=== PATIENT | male | born 1970 | race African-American/Black ===

== ENCOUNTER 2018-03-09 19:50 | Observation (INO) ==
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
[2018-03-09 20:29] LABS: Hematocrit 48.5 % (37.5-50.1); Hemoglobin 16.2 g/dL (12.9-16.9); Immature Platelets 1.9 % (1.1-6.1); Mean Corpuscular HGB Conc 33.4 g/dL (31.6-35.5); Mean Corpuscular Hemoglobin 29.7 pg (28.0-33.3); Red Blood Count 5.45 M/mcL (4.19-5.50); Red Cell Distribution Width 13.2 % (11.5-14.5)
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
[2018-03-09 20:46] LABS: BUN/Creatinine Ratio 20 (6-26); Blood Urea Nitrogen 21 mg/dL (6-20); Calcium 9.7 mg/dL (8.6-10.3); Carbon Dioxide 27 mEq/L (23-29); Chloride 106 mEq/L (98-107); Glucose 82 mg/dL (70-105); Osmolality,Calculated 294 (280-300); Potassium 3.7 mEq/L (3.5-5.1); Sodium 141 mEq/L (136-145); eGFR For Non-African Americans > 60 (> 60)
[2018-03-09 21:30] LABS: Troponin I < 0.03 ng/mL (< 0.04)
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
[2018-03-09] MEDS ORDERED: Naloxone 0.4 MG/ML INJ IVP PRN (23:58)
[2018-03-10] MEDS ORDERED: Gadolinium Contrast Agent (WT Based) IV PRN (00:07)
[2018-03-10] MEDS: Aspirin 81 MG TAB.CHEW PO SCH ×2 (00:58→08:33)
[2018-03-10] MEDS ORDERED: Acetaminophen/Aspirin/Caffeine TABLET PO PRN (01:24)
[2018-03-10] MEDS: Famotidine 20 MG TABLET PO SCH ×3 (01:50→17:50)
[2018-03-10 05:31] LABS: Basophils % 0.6 %; Eosinophils # 0.3 K/mcL (0.0-0.6); Hematocrit 44.7 % (37.5-50.1); Hemoglobin 14.8 g/dL (12.9-16.9); Immature Granulocytes % 0.3 % (0-4); Lymphocytes # 2.8 K/mcL (0.6-4.6); Lymphocytes % 38.7 %; Mean Corpuscular HGB Conc 33.1 g/dL (31.6-35.5); Mean Corpuscular Hemoglobin 29.5 pg (28.0-33.3); Mean Platelet Volume 9.5 fL (9.4-12.4); Monocytes # 0.9 K/mcL (0.0-1.3); Monocytes % 13.1 %; Neutrophils # 3.1 K/mcL (1.6-8.9); Platelet Count 270 K/mcL (140-400); Red Blood Count 5.02 M/mcL (4.19-5.50); Red Cell Distribution Width 13.1 % (11.5-14.5); Segmented Neutrophils % 43.3 %
[2018-03-10 05:59] LABS: Thyroid Stimulating Hormone 4.653 mcIU/mL (0.340-5.600)
[2018-03-10 06:00] LABS: Alanine Aminotransferase 16 Units/L (7-52); Albumin/Globulin Ratio 1.4 (1.1-2.2); Alkaline Phosphatase 61 Units/L (34-104); Aspartate Amino Transferase 14 Units/L (13-39); BUN/Creatinine Ratio 22 (6-26); Bilirubin,Total 0.6 mg/dL (0.3-1.0); Blood Urea Nitrogen 21 mg/dL (6-20); Calcium 9.3 mg/dL (8.6-10.3); Carbon Dioxide 23 mEq/L (23-29); Chloride 107 mEq/L (98-107); Chol/HDL Ratio 3.9 (0-4.9); Cholesterol 157 mg/dL (< 200); Globulin 2.8 g/dL (2.4-3.5); Glucose 99 mg/dL (70-105); HDL Cholesterol 40 mg/dL (40-59); LDL Cholesterol,Calculated 85 mg/dL (0-99); Osmolality,Calculated 293 (280-300); Potassium 3.7 mEq/L (3.5-5.1); Sodium 140 mEq/L (136-145); Total Protein 6.8 g/dL (6.4-8.9); Triglycerides 159 mg/dL (< 150); eGFR For Non-African Americans > 60 (> 60)
[2018-03-10 09:30] LABS: Estimated Average Glucose 120 mg/dl; Hemoglobin A1C 5.8 %
[2018-03-10] MEDS ORDERED: amLODIPine 5 MG TABLET PO SCH (13:30)
--- NOTE | 2018-03-10 14:08 | Internal Med Progress Note ---
Hospitalist Progress Note - Encounter Date of Encounter: 03/10/18 Time of Encounter: 14:01 - Subjective Interval History: 47-year-old male with past medical history of GERD and migraine presented with 1 month history of progressive disequilibrium. He has been diagnosis was migraine for 4-5 years. He takes Excedrin for the headache, he reported he has to take extra dose to relieve the pain. He took about 40 tablets in the past week. He started to have dizziness about a month ago, which has been progressively worsening, he suffered dizziness almost all day prior to admission. It is associated with headache, photophobia, trouble concentrating, and slow response. Initially stroke was suspected, however, CT/MRI brain no acute infarct. [place] Hallpike maneuver was negative, patient has no hearing loss. He denies recent URI or other viral infection. I reviewed with the patient history carefully, the diagnosis is most likely Excedrin toxicity and undertreated migraine. - Exam Vitals: Temp Pulse Resp BP Pulse Ox 98.1 F 79 16 163/109 96 03/10/18 13:11 03/10/18 13:11 03/10/18 13:11 03/10/18 13:11 03/10/18 13:11 Exam: PHYSICAL EXAMINATION: GENERAL APPEARANCE: The patient is alert, oriented and in no acute distress. HEENT: Head is normocephalic. The sinuses are nontender. Pupils are equal and reactive. The nares are patent. Oropharynx clear without lesions. NECK: Supple without lymphadenopathy. HEART: Regular rate and rhythm. LUNGS: No crackles or wheezes are heard. ABDOMEN: Soft, nontender, nondistended with good bowel sounds heard. Inguinal area is normal. EXTREMITIES: Without cyanosis, clubbing or edema. NEUROLOGICAL: Gross nonfocal. SKIN: Warm and dry without any rash. - Assessment and Plan (1) Dizziness Current Visit: Yes Status: Acute Assessment and Plan: 47-year-old male with past medical history migraine presented with 1 month history of ataxia, dizziness, and disequilibrium. he reported severe migraine and also has to take a double dose of Excedrin for headache. He reportedly took more than 40 tablets last week. Meanwhile he developed dizziness for a month, which progressively got worse, with associated nausea, photophobia, and trouble concentrating. - Severe was suspected initially, however, CT/MRI brain were negative for infarct. - [place]-Hallpike maneuver was negative, BPPV less likely. Patient denies hearing loss, Meniere's disease was less likely. His symptoms was progressively w orsening, he has no recent viral infection/URI, vestibular neuronitis was less likely. - Excedrin toxicity is highly suspected, the most common side effect is dizziness. - Patient migraine was also undertreated and uncontrolled. We will stop the Excedrin, started patient on Imitrex, he also need migraine prophylaxis due to the frequency of the headache, was started patient on propranolol, which will concomitantly treats THN. (2) Encephalopathy Current Visit: Yes Status: Acute Assessment and Plan: It is likely due to the toxicity of Excedrin. (3) Elevated blood pressure reading Current Visit: Yes Status: Acute Assessment and Plan: Started pt on propanolol for both HTN and migraine prophylaxis. (4) Migraine Current Visit: Yes Status: Acute Assessment and Plan: treatment as above. (5) DVT prophylaxis Current Visit: Yes Status: Acute Assessment and Plan: - SCDs - Time Spent with Patient Total time spent is greater than 50% in coordination of care (as documented) at patient's floor/unit and/or counseling patient: Greater than 35 minutes Plan of Care Discussed with: patient Internal Medicine: Result - Labs CBC & Chem 7: 03/10/18 04:29 03/10/18 04:29 Labs: Short CBC 03/09/18 03/10/18 Range/Units 20:16 04:29 WBC 7.1 7.2 (4.3-11.1) K/mcL Hgb 16.2 14.8 (12.9-16.9) g/dL Hct 48.5 44.7 (37.5-50.1) % Plt Count 288 270 (140-400) K/mcL Neutrophils # 3.1 (1.6-8.9) K/mcL BMP 03/09/18 03/10/18 20:16 04:29 Sodium 141 140 Potassium 3.7 3.7 Chloride 106 107 Carbon Dioxide 27 23 BUN 21 H 21 H Creatinine 1.06 0.95 Glucose 82 99 Calcium 9.7 9.3 Cardiac Enzymes 03/09/18 Range/Units 20:16 Troponin I < 0.03 (< 0.04) ng/mL Liver Function 03/10/18 Range/Units 04:29 Total Bilirubin 0.6 (0.3-1.0) mg/dL AST 14 (13-39) Units/L ALT 16 (7-52) Units/L Alkaline Phosphatase 61 (34-104) Units/L Albumin 4.0 (3.5-5.7) g/dL - ABG Interpretation ABG results: PT/INR, D-dimer PT 11.0 Seconds (9.4-12.1) 03/09/18 20:16 - Impressions Impressions Head CT 03/09/18 20:04 IMPRESSION: No acute intracranial abnormality. D/ / Jair London / Jair London Interpreting Provider: Jair London Echocardiogram 03/10/18 00:07 Impressions: LVEF 65%. Normal LV chamber size, wall thickness and function. Mild concentric left ventricular hypertrophy. Normal right ventricular structure and function. Moderate aortic regurgitation. The aortic root and ascending aorta is mildly dilated. No pulmonary hypertension. No evidence of PFO with agitated saline contrast. Left Ventricular Wall Motion: Rest Echo Findings All wall segments showed normal motion. Findings: Study Quality * Technically adequate exam. ECG Findings * Normal sinus rhythm. Left Ventricle * LVEF 65%. * Normal LV chamber size, wall thickness and function. * Mild concentric left ventricular hypertrophy. * Basal sigmoid septum. * Normal left ventricular diastolic function. Right Ventricle * Normal right ventricular structure and function. Left Atrium * Normal left atrial size. Right Atrium * Normal right atrial size. Interatrial Septum * No evidence of PFO with agitated saline contrast. Aortic Valve * Trileaflet aortic valve. * No aortic stenosis. * Moderate aortic regurgitation. Mitral Valve * Normal mitral valve structure and function. * No mitral stenosis. * No mitral regurgitation. Tricuspid Valve * Normal tricuspid valve structure and function. * No tricuspid stenosis. * Trace tricuspid regurgitation. * Estimated RVSP is 25 mmHg. * Estimated RA pressure is 8 mmHg. * No pulmonary hypertension. Pulmonic Valve * Pulmonic valve is not well visualized. * No pulmonic stenosis. * Trace pulmonic regurgitation. Aorta * The aortic root is mildly dilated. * The aortic root is 4.3 cm. * Mild ascending aorta dilatation 4 cm. Pericardium * The pericardium appears normal. IVC * Normal IVC dimensions and inspiratory collapse. Brain MRI 03/10/18 06:30 IMPRESSION: No evidence of acute intracranial ischemia, edema, or hemorrhage. D/ / Lucas France / Lucas France Interpreting Provider: Lucas France - VTE Documentation of Mechanical Device: Intermittent pneumatic compression device Consult Discharge Plan - Plan Referrals: NONE,PCP [Primary Care Provider] - (4) Migraine Qualifiers: Migraine type: without aura Status migrainosus presence: without status migrainosus Intractability: not intractable Qualified Code(s): G43.009 - Migraine without aura, not intractable, without status migrainosus
[2018-03-10] MEDS: Propranolol LA (24 HR) 80 MG CAP.SA.24H PO SCH (14:55)
[2018-03-10] MEDS: SUMAtriptan succinate 50 MG TABLET PO PRN (17:50)
--- NOTE | 2018-03-10 18:12 | Neurology - Consult Note ---
Date of Encounter: 03/10/18 Time of Encounter: 18:06 Assessment and Plan (1) Dizziness Current Visit: Yes Status: Acute At this juncture I am not able to clearly establish a neurologic diagnosis for this patient. His exam has no focal or lateralized findings. In fact his exam is normal. Neuroimaging has also been normal. His labs appear normal as well. There is no evidence of a central nervous system infectious or inflammatory process. He has been judiciously using aspirin products. I would recommend obtaining a salicylate level to further support whether not this is salicylate toxicity. I would recommend obtaining an MRA scan of the brain in order to rule out the possibility of cerebral aneurysm. However his presenting symptoms and lack of strong neurologic findings in my opinion decrease the likelihood of an underlying primary neurologic etiology to explain his symptoms. Would also consider urine tox screen. I will reevaluate your request. History of Present Illness HPI: Chart was reviewed, the patient was seen and examined. Mr. Lopez is a 47 year old male who is seen for neurologic consultation at the request of the hospitalist secondary to a chief complaint of dizziness. I am actually seen Mr. Lopez at sometime in the past however he does not recall of seeing me previou danae. However I do find his name other my records in [facility] however the chart was purged. In any regard he presents with complaints of dizziness and feeling off balance which is been present for about a month now. I do not get the sense of in apopleptic event. He simply states that he had complaints of dizziness and difficulty concentrating. He does have complaints of headaches that have been increasingly more intense over the last several weeks. He denies any chills or fever. Denies any numbness tingling or paresthesias of the face arms or legs. Denies visual changes. He does not clearly describe vertigo. Past Med Surg Social Fam HX - Past Medical History Medical history: GERD Psychiatric history: bipolar - Past Surgical History Surgical History: orthopedic, other (Right hand fracture repair) - Social History Smoking Status: Never smoker Smokeless Tobacco Status: No Alcohol use: none Drug use: marijuana - Family History Father Living Status: Still Living Hx Family Neuromuscular Disorders: Yes (Neuropathy in feet and hands) Hx Family Neurologic Disorders: Yes (Peripheral neuropathy) Mother Living Status: Hx Family Endocrine Disorder: Yes (DM) Sister Hx Family Neurologic Disorders: Yes (Vertigo) Hx Family HEENT Disorders: Yes (Vertigo) Medications and Allergies Excedrin Migraine Caplet 03/09/18 [History] Allergy/AdvReac Type Severity Reaction Status Date / Time No Known Allergies Allergy Verified 03/10/17 15:42 All Systems: The remainder of the systems were reviewed and are negative Review of Systems: The balance of the systems review is negative. Physical Examination - Vital Signs Vital Signs: Initial Vital Signs Temp Pulse Resp BP Pulse Ox 97.9 F 98 16 160/104 96 03/09/18 20:02 03/09/18 20:02 03/09/18 20:02 03/09/18 20:02 03/09/18 20:02 - Neurologic Detailed motor examination: full strength in all major muscle groups Motor examination - right side: 5/5: deltoids, biceps, triceps, wrist flexion, wrist extension, netting inspector, hip flexors, tibialis Anterior, quadriceps, toe extension (EHL), plantarflexion Motor examination - left side: 5/5: deltoids, biceps, triceps, wrist flexion, wrist extension, hip flexors, netting inspector, quadriceps, tibialis Anterior, toe extension (EHL), plantarflexion Mental Status Examination: awake, alert, oriented to person, oriented to place, oriented to time, follows commands appropriately, answers questions appropriately, no agnosia, no aphasia, no aproxia Cranial nerve examination: PERRL, EOMI, visual machuca intact, corneal reflexes brisk symmetrically, sensory to face intact, mastication intact, no facial asymmetry is present, no dysarthria, hearing is intact symmetrically (Provocative maneuvers are negative. No nystagmus is present.), soft palate elevates bilaterally upon phonation, gag reflex intact, flexes SCM and trapezius muscles symmetrically with full power, tongue protrudes midline, no atrophy or facial fasiculations present Cerebellar examination: no dysmetria, performs finger to nose and heel to torres symmetrically without ataxia, no gait ataxia, no truncal ataxia, no difficulty with rapid alternating movements Results - Laboratory Findings CBC and BMP: 03/10/18 04:29 03/10/18 04:29 Abnormal lab findings: Abnormal lab results BUN 21 mg/dL (6-20) H 03/10/18 04:29 Hemoglobin A1c 5.8 % (-5.6) H 03/10/18 04:29 Triglycerides 159 mg/dL (< 150) H 03/10/18 04:29 VLDL Cholesterol, Calc 32 mg/dL (< 31) H 03/10/18 04:29 Consult Discharge Plan - Plan Referrals: NONE,PCP [Primary Care Provider] -
[2018-03-10] MEDS ORDERED: Ibuprofen 800 MG TABLET PO ONE (19:30)
[2018-03-11] MEDS: Famotidine 20 MG TABLET PO SCH ×2 (09:11→17:21)
[2018-03-11] MEDS: SUMAtriptan succinate 50 MG TABLET PO PRN (09:22)
[2018-03-11] MEDS: Propranolol LA (24 HR) 80 MG CAP.SA.24H PO SCH (11:46)
[2018-03-11] MEDS: Ibuprofen 800 MG TABLET PO PRN (11:46)
--- NOTE | 2018-03-11 13:49 | Internal Med Progress Note ---
Hospitalist Progress Note - Encounter Date of Encounter: 03/11/18 Time of Encounter: 13:47 - Subjective Interval History: 47-year-old male with past medical history of GERD and migraine presented with 1 month history of progressive disequilibrium. He has been diagnosis was migraine for 4-5 years. He takes Excedrin for the headache, he reported he has to take extra dose to relieve the pain. He took about 40 tablets in the past week. He started to have dizziness about a month ago, which has been progressively worsening, he suffered dizziness almost all day prior to admission. It is associated with headache, photophobia, trouble concentrating, and slow response. Initially stroke was suspected, however, CT/MRI brain no acute infarct. [place] Hallpike maneuver was negative, patient has no hearing loss. He denies recent URI or other viral infection. He received Imitrex and Motrin yesterday and had a complete relief of headache and dizziness. - Exam Vitals: Temp Pulse Resp BP Pulse Ox 98.5 F 60 17 154/117 95 03/11/18 11:35 03/11/18 11:35 03/11/18 11:35 03/11/18 11:35 03/11/18 11:35 Exam: PHYSICAL EXAMINATION: GENERAL APPEARANCE: The patient is alert, oriented and in no acute distress. HEENT: Head is normocephalic. The sinuses are nontender. Pupils are equal and reactive. The nares are patent. Oropharynx clear without lesions. NECK: Supple without lymphadenopathy. HEART: Regular rate and rhythm. LUNGS: No crackles or wheezes are heard. ABDOMEN: Soft, nontender, nondistended with good bowel sounds heard. Inguinal area is normal. EXTREMITIES: Without cyanosis, clubbing or edema. NEUROLOGICAL: Gross nonfocal. SKIN: Warm and dry without any rash. - Assessment and Plan (1) Dizziness Current Visit: Yes Status: Acute Assessment and Plan: 47-year-old male with past medical history migraine presented with 1 month history of ataxia, dizziness, and disequilibrium. he reported severe migraine and also has to take a double dose of Excedrin for headache. He reportedly took more than 40 tablets last week. Meanwhile he developed dizziness for a month, which progressively got worse, with associated nausea, photophobia, and trouble concentrating. - Stroke was suspected initially, however, CT/MRI brain were negative for infarct. - [place]-Hallpike maneuver was negative, BPPV less likely. Patient denies hearing loss, Meniere's disease was less likely. His symptoms was progressively worsening, he has no recent viral infection/URI, vestibular neuronitis was less likely. - Excedrin toxicity is suspected, one of the most common side effects is dizziness. Excedrin was dc'ed. - Pt migraine was undertreated and uncontrolled. Dizziness could be part of the symptomology of Migraine, since it is resolved after migraine was under control. We will continue use combination of triptan and NSAIDS to control headache. (2) Encephalopathy Current Visit: Yes Status: Acute Assessment and Plan: It is likely due to the toxicity of Excedrin. (3) Elevated blood pressure reading Current Visit: Yes Status: Acute Assessment and Plan: Started pt on propanolol for both HTN and migraine prophylaxis. add Norvasc, because it seems no room to increase the dose of Propanolol due to bradycardia. (4) Migraine Current Visit: Yes Status: Acute Assessment and Plan: treatment as above. (5) DVT prophylaxis Current Visit: Yes Status: Acute Assessment and Plan: - SCDs - Time Spent with Patient Total time spent is greater than 50% in coordination of care (as documented) at patient's floor/unit and/or counseling patient: Greater than 35 minutes Plan of Care Discussed with: patient Internal Medicine: Result - Labs CBC & Chem 7: 03/10/18 04:29 03/10/18 04:29 - ABG Interpretation ABG results: PT/INR, D-dimer PT 11.0 Seconds (9.4-12.1) 03/09/18 20:16 - VTE Documentation of Mechanical Device: Intermittent pneumatic compression device Consult Discharge Plan - Plan Referrals: NONE,PCP [Primary Care Provider] - ____ (4) Migraine Qualifiers: Migraine type: without aura Status migrainosus presence: without status migrainosus Intractability: not intractable Qualified Code(s): G43.009 - Migraine without aura, not intractable, without status migrainosus
[2018-03-11] MEDS: amLODIPine 5 MG TABLET PO SCH (13:51)
[2018-03-11] MEDS ORDERED: Topiramate 25 MG TABLET PO SCH (14:15)
[2018-03-11] MEDS ORDERED: Topiramate 25 MG CAP.SPRINK PO SCH (21:00)
[2018-03-12] MEDS: Ibuprofen 800 MG TABLET PO PRN ×2 (03:33→10:46)
[2018-03-12] MEDS: SUMAtriptan succinate 50 MG TABLET PO PRN (03:33)
[2018-03-12 05:01] LABS: Basophils # 0.1 K/mcL (0.0-0.2); Eosinophils # 0.3 K/mcL (0.0-0.6); Eosinophils % 4.8 %; Hematocrit 45.5 % (37.5-50.1); Hemoglobin 15.4 g/dL (12.9-16.9); Immature Granulocytes % 0.4 % (0-4); Lymphocytes # 2.8 K/mcL (0.6-4.6); Lymphocytes % 40.4 %; Mean Corpuscular HGB Conc 33.8 g/dL (31.6-35.5); Mean Corpuscular Hemoglobin 29.9 pg (28.0-33.3); Mean Corpuscular Volume 88.3 fL (83.0-100.0); Mean Platelet Volume 9.6 fL (9.4-12.4); Monocytes % 13.7 %; Neutrophils # 2.8 K/mcL (1.6-8.9); Platelet Count 267 K/mcL (140-400); Red Blood Count 5.15 M/mcL (4.19-5.50); Segmented Neutrophils % 39.7 %
[2018-03-12 05:21] LABS: BUN/Creatinine Ratio 21 (6-26); Blood Urea Nitrogen 24 mg/dL (6-20); Calcium 9.5 mg/dL (8.6-10.3); Carbon Dioxide 25 mEq/L (23-29); Chloride 108 mEq/L (98-107); Glucose 113 mg/dL (70-105); Osmolality,Calculated 295 (280-300); Potassium 3.9 mEq/L (3.5-5.1); Sodium 140 mEq/L (136-145); eGFR For Non-African Americans > 60 (> 60)
[2018-03-12 07:02] VITALS: BP 144/86
[2018-03-12] MEDS: Famotidine 20 MG TABLET PO SCH (08:27)
[2018-03-12] MEDS: amLODIPine 5 MG TABLET PO SCH (08:27)
--- NOTE | 2018-03-12 10:20 | Discharge Summary ---
- NOTES TO OUTPATIENT PROVIDER Notes to Outpatient Provider: f/u with PCP for migraine within a week. Date of Encounter: 03/12/18 Time of Encounter: 10:16 - Discharge Diagnosis (1) Dizziness Priority: Primary Status: Acute (2) Encephalopathy Priority: Primary Status: Acute (3) Elevated blood pressure reading Priority: Primary Status: Acute (4) Migraine Priority: Secondary Status: Acute Qualifiers: Migraine type: without aura Status migrainosus presence: without status migrainosus Intractability: not intractable Qualified Code(s): G43.009 - Migraine without aura, not intractable, without status migrainosus (5) DVT prophylaxis Priority: Primary Status: Acute Hospital course: Mr. Lopez is a 47 year old male with past medical history of GERD and migraine presented with 1 month history of progressive disequilibrium and headache. He has been diagnosed with migraine for 4-5 years. He takes Excedrin for the headache, he reported he has to take extra dose to relieve the pain recently. He took about 40 tablets in the past week. He started to have dizziness about a month ago, which has been progressively worsening, he suffered dizziness almost all day prior to admission. It is associated with headache, photophobia, trouble concentrating, and slow response. He was admitted for further workup. Initially stroke was suspected, however, CT/MRI brain no acute infarct. [place] Hallpike maneuver was negative, patient has no hearing loss. He denies recent URI or other viral infection. Excedrin was dc'ed. Migraine related vertigo and under-treated headache were suspected to be the etiology. He was started on Imitrex and ibuprofen, his headache and vertigo were controlled. Due to the high frequency of migraine attacks, he was placed on migraine prophylaxis with Propanolol, however, he can not tolerate, it was switched to Topamax at the low dose. At the discharge day, his headache and dizziness were controlled by medication. He will be discharged home with prescription of Topamax, Imitrex and Ibuprofen. He was instructed to f/u with PCP and topamax dose may need to titrate to achieve optimal effect. He was instructed to monitor BP and take Norvasc as prescribed. Discharge discussed with: patient Time spent discussing smoking cessation with patient: more than 10 minutes - Time Spent with Patient Total time spent providing and/or coordinating discharge services: Greater than 30 minutes - Discharge Medications Prescriptions: Ibuprofen [Motrin] 800 mg PO Q8HR PRN #30 tablet PRN Reason: Migraine Headache amLODIPine [Norvasc] 5 mg PO DAILY #30 tablet SUMAtriptan succinate [Imitrex] 100 mg PO Q2H PRN #9 tablet PRN Reason: Migraine Headache Topiramate [Topamax] 25 mg PO HS #30 cap.sprink Home Medications: Chromium Amino Acid Chelate [Chromium] 400 mcg PO DAILY 03/11/18 [History] Krill Oil 500 mg PO DAILY 03/11/18 [History] Magnesium Oxide [Magnesium] 400 mg PO DAILY 03/11/18 [History] Omeprazole [PriLOSEC] 20 mg PO DAILY 03/11/18 [History] Vit B Comp with C/Calcium Carb [Gnp B-Complex Tablet] 1 tab PO BID 03/11/18 [History] Ibuprofen [Motrin] 800 mg PO Q8HR PRN #30 tablet 03/12/18 [Rx] SUMAtriptan succinate [Imitrex] 100 mg PO Q2H PRN #9 tablet 03/12/18 [Rx] Topiramate [Topamax] 25 mg PO HS #30 cap.sprink 03/12/18 [Rx] amLODIPine [Norvasc] 5 mg PO DAILY #30 tablet 03/12/18 [Rx] Allergies/Adverse Reactions: Allergy/AdvReac Type Severity Reaction Status Date / Time No Known Allergies Allergy Verified 03/11/18 16:57 Date of admission: 03/09/18 22:46 Primary care physician: PCP NONE Consults: 03/10/18 00:19 Consult to Classified Ad Clerk [CONS] Routine Reason for SW Consult: Patient reports that he does not have health insurance and "cannot afford this" Anticipated date of discharge: 03/12/18 - Constitutional Vitals: Temp Pulse Resp BP Pulse Ox 98.3 F 57 16 144/86 96 03/12/18 06:53 03/12/18 06:53 03/12/18 06:53 03/12/18 06:53 03/12/18 06:53 General appearance: Present: cooperative, A&O X 3, answers questions appropriately Exam: PHYSICAL EXAMINATION: GENERAL APPEARANCE: The patient is alert, oriented and in no acute distress. HEENT: Head is normocephalic. The sinuses are nontender. Pupils are equal and reactive. The nares are patent. Oropharynx clear without lesions. NECK: Supple without lymphadenopathy. HEART: Regular rate and rhythm. LUNGS: No crackles or wheezes are heard. ABDOMEN: Soft, nontender, nondistended with good bowel sounds heard. Inguinal area is normal. EXTREMITIES: Without cyanosis, clubbing or edema. NEUROLOGICAL: Gross nonfocal. SKIN: Warm and dry without any rash. - Patient Status Disposition: Home, Self-Care Condition: Good Functional capacity at discharge: independent ambulation Overall status at discharge: patient is progressing back to baseline - Discharge Instructions Follow Up With: NONE,PCP [Primary Care Provider] - (Call [phone] to set up appointment with a PCP) - Diet and Activity Activity: increase activity as tolerated Diet: low fat, low cholesterol, low salt diet - VTE Documentation of Mechanical Device: Intermittent pneumatic compression device
--- NOTE | 2018-03-12 17:50 | Electrocardiograph Report ---
[address] [place], [place] [address] Test Date: 2018-03-09 Pat Name: Herminio Lopez Department: [id number] Room: 3B44 Gender: M [employer]le Wrapping Machine Operator: : [id number] Requested By: Agustin Restrepo Order Number: [id number] Reading MD: Vernell Rai Measurements Intervals [place] Rate: 98 P: 38 FL: 156 QRS: 60 QRSD: 90 T: -20 QT: 338 QTc: 432 Interpretive Statements Sinus rhythm Nonspecific T abnormalities, inferior leads Electronically Signed On 03-12-2018 17:48:58 EST by Vernell Rai
== END 2018-03-12 11:12 | disposition home or self-care (01) ==
LOC: EMEROOARM 19:50 → 3BNU 19:50
PROVIDERS: ADMIT Internal Medicine; ATTEND Internal Medicine